=== PATIENT | female | born 1975 | race African-American/Black ===

== ENCOUNTER 2018-03-13 19:46 | Emergency (ER) | payer OTHER ==
[~2018-03-13] VITALS: Ht 162.6 cm; Wt 64.9 kg
[2018-03-13] MEDS ORDERED: ATENOLOL 25MG T25 M1 PO (20:06)
[2018-03-13] MEDS ORDERED: HYDRALAZINE 2525 MG PO (20:07)
[2018-03-13 20:34] LABS: URINE BILIRUBIN NEGATIVE (Negative); URINE BLOOD 2+ (Negative); URINE CLARITY CLEAR; URINE COLOR YELLOW; URINE GLUCOSE-RANDOM NEGATIVE (Negative); URINE KETONES NEGATIVE (Negative); URINE LEUKOCYTES-REFLEX NEGATIVE (Negative); URINE NITRITE-REFLEX NEGATIVE (Negative); URINE PROTEIN NEGATIVE (Negative); URINE SPECIFIC GRAVITY 1.025 (1.005-1.030); URINE UROBILINOGEN 0.2 E.U./dl (0.2-1.0)
[2018-03-13 20:39] LABS: ABSOLUTE BASOPHILS 0.1 thou/uL (0.0-0.2); ABSOLUTE EOSINOPHILS 0.1 thou/uL (0.0-0.7); ABSOLUTE LYMPHOCYTES 1.4 thou/uL (0.8-5.3); ABSOLUTE MONOCYTES 0.5 thou/uL (0.0-1.2); ABSOLUTE NEUTROPHILS 2.8 thou/uL (1.6-8.1); EOSINOPHILS 2.2 %; HEMATOCRIT 37.1 % (37.0-47.0); HEMOGLOBIN 12.4 gm/dL (12.0-15.0); LYMPHOCYTES 28.9 %; MCH 30.3 pg (26.0-34.0); MCHC 33.4 g/dL (28.0-37.0); MCV 90.7 fL (80.0-100.0); MONOCYTES 10.1 %; MPV 7.8 fl. (7.2-11.1); NUCLEATED RBCS 0 /100WBC; PLATELET COUNT* 203 thou/uL (150-400); POLYS 57.8 %; RBC 4.09 mil/uL (4.20-5.00); RDW-CV 13.6 % (10.5-14.5); WBC 4.9 thou/uL (4.0-11.0)
[2018-03-13 20:42] LABS: BACTERIA-REFLEX >30 Many /HPF (None Seen); CASTS None Seen /LPF (None Seen); CRYSTALS None Seen /LPF (None Seen); MUCUS 4-6 Moderate strn/LPF (None Seen); SQUAMOUS 4-10 Moderate /LPF (0-3); URINE RBC >20 Many /HPF (0-2); URINE WBC-REFLEX 6-15 Few /HPF (0-5)
[2018-03-13 20:45] LABS: CREATININE 0.7 mg/dL (0.6-1.3); POTASSIUM 3.4 mmol/L (3.5-5.1)
[2018-03-13 20:56] LABS: ALBUMIN 3.6 g/dL (3.4-5.0); TOTAL BILIRUBIN 0.3 mg/dL (<0.1-1.0); TOTAL PROTEIN 7.4 g/dL (6.4-8.2)
[2018-03-13] MEDS ORDERED: HYDROCODONE-AP1 EAC6 PO (21:15)
[2018-03-13] MEDS ORDERED: NAPROSYN500 MG PO (21:15)
[2018-03-13] MEDS ORDERED: MACROBID 100 M100 M1 PO (21:29)
[2018-03-13 21:32] VITALS: BP 155/100
== END 2018-03-13 21:34 | disposition home or self-care (01) ==
LOC: M.ERS 19:46
PROVIDERS: Physician Assistant
DX: N39.0 Urinary tract infection, site not specified (principal); I10 Essential (primary) hypertension; E03.9 Hypothyroidism, unspecified; Z88.8 Allergy status to other drugs, medicaments and biological substances; Z88.0 Allergy status to penicillin; Z88.2 Allergy status to sulfonamides

== ENCOUNTER 2018-09-19 13:32 | Emergency (ER) | payer OTHER ==
[~2018-09-19] VITALS: Ht 160 cm; Wt 63.5 kg
[~2018-09-19 13:32] MED LIST: ATENOLOL 25MG T25 M1 PO; HYDRALAZINE 2525 MG PO; HYDROCODONE-AP1 EAC6 PO; MACROBID 100 M100 M1 PO; NAPROSYN500 MG PO
[2018-09-19] MEDS ORDERED: KEFLEX500 M1 PO (15:17)
[2018-09-19] MEDS ORDERED: DIFLUCAN150 MG PO (15:28)
[2018-09-19 15:34] VITALS: BP 164/86
== END 2018-09-19 15:36 | disposition home or self-care (01) ==
LOC: M.ERS 13:32
DX: S91.202A Unspecified open wound of left great toe with damage to nail, initial encounter (principal); F17.200 Nicotine dependence, unspecified, uncomplicated; I10 Essential (primary) hypertension; Z88.5 Allergy status to narcotic agent; Z88.0 Allergy status to penicillin; Z88.2 Allergy status to sulfonamides; Z88.8 Allergy status to other drugs, medicaments and biological substances; W20.8XXA Other cause of strike by thrown, projected or falling object, initial encounter; Y92.89 Other specified places as the place of occurrence of the external cause; Y93.89 Activity, other specified; Y99.8 Other external cause status